=== PATIENT | female | born 1990 | race Caucasian/White ===

== ENCOUNTER 2024-03-25 10:05 | Emergency (ER) | payer OTHER ==
[~2024-03-25] VITALS: Ht 162.6 cm; Wt 59.0 kg
[2024-03-25] MEDS ORDERED: ACETAMINOPHEN ES 500 MG TABLET ONE (10:57)
[2024-03-25] MEDS: IBUPROFEN 600 MG TABLET PO ONE (10:58)
[2024-03-25] MEDS ORDERED: IBUPROFEN 600 MG TABLET ONE (10:58)
[2024-03-25] MEDS: ACETAMINOPHEN ES 500 MG TABLET PO ONE (10:58)
[2024-03-25 11:17] LABS: APPEARANCE,URINE SLIGHTLY CLOUDY (CLEAR); BILIRUBIN,URINE NEGATIVE (NEGATIVE); BLOOD, URINE NEGATIVE Ery/uL (NEGATIVE); COLOR,URINE DARK YELLOW (YELLOW); KETONES,URINE NEGATIVE (NEGATIVE); LEUKOCYTE ESTERASE ,URINE NEGATIVE (NEGATIVE); NITRITE, URINE NEGATIVE (NEGATIVE); PH,URINE 6.5 (5.0-8.0); PROTEIN,URINE NEGATIVE (NEGATIVE); UGLUCOSE NEGATIVE (NEGATIVE); UROBILINOGEN,URINE 0.2 EU/dL (0.2)
[2024-03-25 11:19] LABS: BASOPHILS % (AUTO) 0.7 % (0.0-2.0); EOSINOPHILS # (AUTO) 0.2 K/uL (0.0-0.7); EOSINOPHILS % (AUTO) 3.6 % (0.0-6.0); HEMATOCRIT 45 % (33-45); HEMOGLOBIN 14.7 g/dL (11.5-14.8); LYMPHOCYTES # (AUTO) 1.7 K/uL (0.8-4.8); LYMPHOCYTES % (AUTO) 40.9 % (20.0-44.0); MEAN CORPUSCULAR HEMOGLOBIN 32 PG (26.0-33.0); MEAN CORPUSCULAR HGB CONC 33 g/dl (31.0-36.0); MEAN CORPUSCULAR VOLUME 98 fL (82-100); MONOCYTES # (AUTO) 0.4 K/uL (0.1-1.30); MONOCYTES % (AUTO) 8.7 % (2.0-12.0); NEUTROPHILS % (AUTO) 46.1 % (43.0-81.0); PLATELET COUNT (AUTO) 306 K/uL (150-450); RED BLOOD CELL COUNT(AUTO) 4.56 MIL/uL (4.0-5.2); RED CELL DISTRIBUTION WIDTH 13.6 % (11.5-15.0); WHITE BLOOD COUNT (AUTO) 4.3 K/uL (4.3-11.0)
[2024-03-25 11:24] LABS: CALCIUM, SERUM 9.5 mg/dL (8.5-10.1); CREATININE 0.8 mg/dL (0.6-1.3); POTASSIUM 4.6 mmol/L (3.5-5.1)
[2024-03-25 11:29] LABS: ADD URINE CULTURE NO; BACTERIA,URINE Rare /HPF (None Seen); RBC,URINE 0-2 /HPF (0-2)
[2024-03-25 11:30] LABS: TRICHOMONAS,URINE None Seen /HPF (None Seen); URINE AMORPHOUS URATE Few /HPF (None Seen); YEAST,URINE None Seen /HPF (None Seen)
[2024-03-25] MEDS ORDERED: IBUP-1953 PO (12:01)
[2024-03-25 12:43] VITALS: BP 145/72; TEMP 98.7; O2SAT 100
== END 2024-03-25 12:44 | disposition home or self-care (01) ==
LOC: ER 10:05
DX: R10.2 Pelvic and perineal pain (principal)
CPT/HCPCS: 36415; 80048-TC; 81001; 84702-TC; 85025-TC; 87491